=== PATIENT | female | born 1985 | race American Indian/Alaskan Native ===

== ENCOUNTER 2016-06-16 11:47 | Emergency (ER) | payer SELFPAY ==
[2016-06-16 12:46] LABS: Basophils % (Auto) 0.2 % (0.0-1.8); Eosinophils % (Auto) 1.1 % (0.0-4.3); Hemoglobin 13.2 gm/dl (10.1-14.3); Mean Corpuscular HGB Conc 34 % (30-34); Mean Corpuscular Hemoglobin 29 pg (28-32); Mean Corpuscular Volume 86 fl (79-97); Platelet Count 227 K/mm3 (140-440); Red Blood Count 4.52 M/mm3 (3.65-5.03); Red Cell Distribution Width 13.7 % (13.2-15.2); White Blood Count 7.1 K/mm3 (4.5-11.0)
[2016-06-16 13:12] LABS: Anion Gap 13 mmol/L; BUN/Creatinine Ratio 24.28; Blood Urea Nitrogen 17 mg/dL (7-17); Calcium 9.1 mg/dL (8.4-10.2); Carbon Dioxide 26 mmol/L (22-30); Chloride 103.6 mmol/L (98-107); Glucose 93 mg/dL (65-100); Potassium 4.9 mmol/L (3.6-5.0); Sodium 138 mmol/L (137-145)
[2016-06-16 13:48] LABS: Urine Drugs of Abuse Note Disclamer
[2016-06-16 14:22] LABS: Bilirubin,Urine NEG (Negative); Blood,Urine SM (Negative); Ketones,Urine NEG (Negative); Leukocyte Esterase,Urine SM (Negative); Mucus,Urine FEW /HPF; Nitrite,Urine NEG (Negative); Protein,Urine <15 mg/dL mg/dL (Negative); Urobilinogen,Urine < 2.0 mg/dL (<2.0)
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
[2016-06-17 09:06] VITALS: BP 99/62
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
--- NOTE | 2016-06-17 15:59 | Emergency Department Report ---
Blank Doc - Documentation Documentation: Patient has been evaluated by psychiatry. Form 1013 will be rescinded. Patient is being referred for outpatient services. Patient will be discharged home at this time.
== END 2016-06-17 17:02 | disposition home or self-care (01) ==
LOC: EEVIPCON 11:47 → ED 11:47
DX: R45.851 Suicidal ideations (principal); F43.10 Post-traumatic stress disorder, unspecified; E05.90 Thyrotoxicosis, unspecified without thyrotoxic crisis or storm; F17.200 Nicotine dependence, unspecified, uncomplicated; F12.10 Cannabis abuse, uncomplicated; Z88.1 Allergy status to other antibiotic agents
CPT/HCPCS: 36415; 80048; 80307; 81001; 84703; 85025; 99284; G0480; 80320